=== PATIENT | female | born 1975 | race Caucasian/White ===

== ENCOUNTER 2019-01-17 12:03 | Emergency (ER) | payer MEDICAID ==
[2019-01-17 12:21] VITALS: BP 134/94
--- NOTE | 2019-01-17 13:18 | ER Document Report ---
HPI - HPI Patient complains to provider of: med refill Time Seen by Provider: 01/17/19 12:55 Onset: Other - 1 month Onset/Duration: Persistent Pain Level: Denies Context: Patient presents with a history of multiple complaints after recently moving here from [place] over a month ago. Patient states she has recently applied for Medicaid in this state but it has not gone through yet. Patient states that she went to an urgent care last week and they are setting her up to see a primary doctor but her appointment is not until 01/24/2019. Patient has still been taking her medicine although she will run out tomorrow. Patient is requesting a refill of her Viibryd, Xarelto and fenofibrate. Associated Symptoms: None Exacerbated by: Denies Relieved by: Denies Similar symptoms previously: Yes Recently seen / treated by doctor: Yes - ROS ROS below otherwise negative: Yes Systems Reviewed and Negative: Yes All other systems reviewed and negative - CONSTITUTIONAL Constitutional: DENIES: Fever - CARDIOVASCULAR Cardiovascular: DENIES: Chest pain - GASTROINTESTINAL Gastrointestinal: DENIES: Nausea, Patient vomiting - REPRODUCTIVE Reproductive: DENIES: : - MUSCULOSKELETAL Musculoskeletal: DENIES: Extremity pain - DERM Skin Color: Normal Skin Problems: None Past Medical History - General Information source: Patient - Social History Smoking Status: Current Every Day Smoker Smoking Education Provided: Yes Frequency of alcohol use: None Drug Abuse: None Occupation: none Lives with: Family Family History: Reviewed & Not Pertinent - Past Medical History Cardiac Medical History: Reports: Hx DVT, Hx Heart Attack, Hx Hypercholesterolemia, Hx Pulmonary Embolism Neurological Medical History: Reports: Hx Cerebrovascular Accident Musculoskeletal Medical History: Reports Hx Arthritis - Ankylosing spondylitis Past Surgical History: Reports: Hx Cardiac Surgery, Hx Vascular Surgery Vertical Provider Document - CONSTITUTIONAL Agree With Documented VS: Yes Exam Limitations: No Limitations General Appearance: WD/WN, No Apparent Distress - HEENT HEENT: Atraumatic, Normocephalic - NECK Neck: Normal Inspection - RESPIRATORY Respiratory: Breath Sounds Normal, No Respiratory Distress - CARDIOVASCULAR Cardiovascular: Regular Rate, Regular Rhythm, No Murmur. negative: Tachycardia - BACK Back: Normal Inspection - MUSCULOSKELETAL/EXTREMETIES Musculoskeletal/Extremeties: MAEW - NEURO Level of Consciousness: Awake, Alert, Appropriate Motor/Sensory: No Motor Deficit - DERM Integumentary: Warm, Dry Course - Vital Signs Vital signs: Temp Pulse Resp BP Pulse Ox 99.6 F 95 16 134/94 H 97 01/17/19 12:19 01/17/19 12:19 01/17/19 12:19 01/17/19 12:19 01/17/19 12:19 Discharge - Discharge Clinical Impression: Medication refill Condition: Stable Disposition: HOME, SELF-CARE Additional Instructions: Return immediately for any new or worsening symptoms Followup with your primary care provider, call tomorrow to make a followup appointment Prescriptions: Fenofibrate 160 mg PO DAILY #15 tablet Rivaroxaban [Xarelto] 20 mg PO DAILY #15 tablet Vilazodone HCl [Viibryd] 40 mg PO DAILY #15 tablet Forms: Smoking Cessation Education Referrals: FRANCIS RIDDLE MD [ACTIVE STAFF] - Follow up as needed LISETTE MACKEY MD [ACTIVE STAFF] - Follow up as needed TYRA NEGRON MD [ACTIVE STAFF] - Follow up as needed KATELYNN DESHPANDE MD [ACTIVE STAFF] - Follow up as needed MOHINDER DAVIS MD [ACTIVE STAFF] - Follow up as needed
== END 2019-01-17 14:01 | disposition home or self-care (01) ==
LOC: ER 12:03
DX: Z76.0 Encounter for issue of repeat prescription (principal); Z79.01 Long term (current) use of anticoagulants; Z79.899 Other long term (current) drug therapy; F17.200 Nicotine dependence, unspecified, uncomplicated
CPT/HCPCS: 99281

== ENCOUNTER → 2019-03-17 | Outpatient (CLI) | payer MEDICAID ==
--- NOTE | 2019-03-17 14:52 | WOMENS IMAGING REPORT ---
EXAM DESCRIPTION: 3D SCREENING MAMMO BILAT COMPLETED DATE/TIME: 03/17/2019 2:04 pm REASON FOR STUDY: Z12.31 ROUTINE 3D BILATERAL SCREENING Z12.31 ENCNTR SCREEN MAMMOGRAM FOR MALIGNAN T NEOPLASM OF EDDY COMPARISON: None. TECHNIQUE: Standard craniocaudal and mediolateral oblique views of each breast recorded using digita l acquisition and breast tomosynthesis. LIMITATIONS: None. FINDINGS: RIGHT BREAST MASSES: No suspicious masses. CALCIFICATIONS: No new or suspicious calcifications. ARCHITECTURAL DISTORTION: None. DEVELOPING DENSITY: None. ASYMMETRY: None noted. OTHER: No other significant findings. LEFT BREAST MASSES: Smooth 4 mm mass approximately 12 o'clock upper outer quadrant 5.5 cm deep to the nipple, bes t seen on the time the images. CALCIFICATIONS: No new or suspicious calcifications. ARCHITECTURAL DISTORTION: None. DEVELOPING DENSITY: None. ASYMMETRY: None noted. OTHER: No other significant findings. Read with the assistance of CAD. .[facility] - R2 Yeast Pumper Version 9.2 IMPRESSION: Small mass left breast. BREAST DENSITY: b. There are scattered areas of fibroglandular density. BIRAD: 0 Incomplete: Needs Additional Imaging Evaluation and/or prior Mammograms for Comparison. RECOMMENDATION: RECOMMENDED FOLLOW-UP: Ultrasound of the left breast. The patient will be contacted for additional imaging. COMMENT: The patient has been notified of the results by letter per SA requirements. Additional no tification policies are in place for contacting patient with suspicious or incomplete findings. Quality ID #225: The [employer] recommends an annual screening mammogram for women aged 40 years or over. This facility utilizes a reminder system to ensure that all patients receive reminder letters, and/or direct phone calls for appointments. This includes reminders for routine scr eening mammograms, diagnostic mammograms, or other Breast Imaging Interventions when appropriate. Th is patient will be placed in the appropriate reminder system. TECHNICAL DOCUMENTATION: FINDING NUMBER: (1) ASSESSMENT: (1) JOB ID: [id number] [employer]- All Rights Reserved Reading location - IP/workstation name: [email or web address]
== END ==
LOC: WI 13:51
PROVIDERS: ATTEND Physician Assistant
DX: Z12.31 Encounter for screening mammogram for malignant neoplasm of breast (principal)
CPT/HCPCS: 77063; 77067

== ENCOUNTER → 2019-03-31 | Outpatient (CLI) | payer MEDICAID ==
--- NOTE | 2019-03-31 14:42 | WOMENS IMAGING REPORT ---
EXAM DESCRIPTION: U/S BREAST UNILATERAL, COMPL COMPLETED DATE/TIME: 03/31/2019 2:27 pm REASON FOR STUDY: N63.21 UNSPECIFIED LUMP IN THE LEFT BREAST,UPPER OUTER QUADRANT N63.21 UNSPECIFIE D LUMP IN THE LEFT BREAST, UPPER OUTER QUAD COMPARISON: None. TECHNIQUE: Real-time and static grayscale imaging performed of the left breast targeted to the area of clinical/mammographic concern. Selected color Doppler images recorded. LIMITATIONS: None. FINDINGS: MASS: No mass identified. Normal glandular tissue. OTHER: No other significant finding. IMPRESSION: No suspicious findings detected by ultrasound. BIRAD: Negative. RECOMMENDATION: RECOMMENDED FOLLOW-UP: Annual mammographic follow-up. COMMENT: The [employer] (ACR) has developed recommendations for screening MRI of the breasts in certain patient populations, to be used in conjunction with mammography. Breast MRI s urveillance may be appropriate for women with more than 20% lifetime risk of developing breast cancer as determined by genetic testing, significant family history of the disease, or history of mantle r adiation for Hodgkins Disease. ACR Practice Guidelines 2008. TECHNICAL DOCUMENTATION: JOB ID: [id number] [employer]- All Rights Reserved Reading location - IP/workstation name: [email or web address]
== END ==
LOC: WI 13:43
PROVIDERS: ATTEND Physician Assistant
DX: N63.21 Unspecified lump in the left breast, upper outer quadrant (principal)
CPT/HCPCS: 76641

== ENCOUNTER → 2019-10-17 | Outpatient (CLI) | payer MEDICAID ==
--- NOTE | 2019-10-18 16:10 | RADIOLOGY REPORT (SQ) ---
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 TECHNIQUE: Sagittal and Axial imaging includes T1, T2, STIR and gradient echo sequences. T1 post ga dolinium sequences. CONTRAST TYPE AND DOSE: 20 mL Dotarem. RENAL FUNCTION: Not indicated. ACR Type II contrast agent associated with few, if any, unconfounded cases of NSF LIMITATIONS: None. FINDINGS: LOCALIZER: No worrisome findings. ALIGNMENT: Normal. VERTEBRAE: Intact. BONE MARROW: Normal other than small lipoma is in the body of T8 and T11. HARDWARE: None in the spine. CORD: Normal in size and signal intensity. SOFT TISSUES: No soft tissue masses. THORACIC DISCS T1-T12: No significant spinal stenosis. Annular disc bulging at T6-T7 and T7-T8. The re annular disc bulging at T11-T12. LOWER CERVICAL: Incompletely imaged. No significant spinal stenosis or exit foraminal stenosis. UPPER LUMBAR: Incompletely imaged. No significant spinal stenosis or exit foraminal stenosis. ENHANCEMENT: No abnormal enhancement. OTHER: No other significant finding. IMPRESSION: Mild multilevel spondylosis. No high-grade central canal narrowing. No abnormal cord s ignal. No abnormal enhancement. TECHNICAL DOCUMENTATION: JOB ID: [id number] [employer]- All Rights Reserved Reading location - IP/workstation name: [email or web address]
--- NOTE | 2019-10-19 12:42 | RADIOLOGY REPORT (SQ) ---
EXAM DESCRIPTION: MRI LUMBAR SPINE COMBO COMPLETED DATE/TIME: 10/17/2019 8:37 pm REASON FOR STUDY: OTHER INTERVERTEBRAL DISC DEGENERATION, THORACIC LUMBAR REGION M51.36 OTHER INT ERVERTEBRAL DISC DEGENERATION, LUMBAR REGION M51.34 OTHER INTERVERTEBRAL DISC DEGENERATION, THORACIC TIBURCIO COMPARISON: None. TECHNIQUE: Sagittal and Axial imaging includes T1, T1 post gadolinium, T2, STIR and gradient echo se quences. Coronal T2/HASTE imaging. CONTRAST TYPE AND DOSE: 20 mL Dotarem. RENAL FUNCTION: Not indicated. ACR Type II contrast agent associated with few, if any, unconfounded cases of NSF LIMITATIONS: None. FINDINGS: VISUALIZED UPPER ABDOMEN: Limited field of view. No gross pathology. SEGMENTATION: No transitional anatomy. The lowest well-developed disc space is labeled L5-S1. ALIGNMENT: Anatomic. VERTEBRAE: Intact. No fractures. BONE MARROW: Normal. No marrow replacement or reactive changes. DISC SIGNAL: Variable signal and height loss. POSTERIOR ELEMENTS: No pars defect. Mild facet arthropathy throughout without bulky overgrowth. HARDWARE: None in the spine. CORD AND CONUS: Normal in size and signal intensity. Conus at the appropriate level. SOFT TISSUES: No aortic aneurysm seen. No bulky retroperitoneal adenopathy or mass. No paraspinal mas s or fluid. L1-L2: No significant spinal stenosis or exit foraminal stenosis. L2-L3: No significant spinal stenosis or exit foraminal stenosis. L3-L4: Broad disc bulge with mild associated spurring. Mild posterior ligament thickening and slight facet overgrowth. There is lateral recess encroachment bilaterally. Bilateral foraminal narrowing is mild-moderate. L4-L5: Disc height loss with mild broad disc bulge. Mild facet overgrowth. Mild central stenosis ov erall. Up to moderate bilateral foraminal stenosis. L5-S1: Mild disc and facet disease. Left exit foraminal narrowing is at least moderate. LOWER THORACIC: T11-12 disc bulge without cord compression. SACRUM: Visualized upper sacrum intact. ENHANCEMENT: No abnormal enhancement. OTHER: No other significant findings. IMPRESSION: 1. Spondylosis without high-grade central stenosis. Foraminal narrowing as above. 2. No suspicious areas of enhancement. No fracture or bone lesion or significant spinal malalignment detected. TECHNICAL DOCUMENTATION: JOB ID: [id number] [employer]- All Rights Reserved Reading location - IP/workstation name: [email or web address]
== END ==
LOC: RAD 18:09
PROVIDERS: ATTEND Physician Assistant
DX: M51.36 Other intervertebral disc degeneration, lumbar region (principal); M47.896 Other spondylosis, lumbar region; M51.34 Other intervertebral disc degeneration, thoracic region; M47.894 Other spondylosis, thoracic region
CPT/HCPCS: 82565; 72157; 72158; A9576

== ENCOUNTER 2019-12-18 14:57 | Emergency (ER) | payer MEDICAID ==
--- NOTE | 2019-12-18 15:35 | ER Document Report ---
ED Psych Disorder / Suicide - General Chief Complaint: Suicidal Ideation Stated Complaint: SUICIDAL IDEATIONS Time Seen by Provider: 12/18/19 15:21 Primary Care Provider: YRN JARQUIN PA-C [Primary Care Provider] - Follow up as needed Mode of Arrival: Ambulatory Information source: Patient Notes: This 44-year-old woman presents to the emergency department with a history of depression. She states for the past 3 months her symptoms have worsened and for the last week she has had worsening symptoms suicidal ideation. States that she has had thoughts of running her car into a tree or stepping into traffic. She has had a history of hospitalizations in the past, apparently during her teenage years she was hospitalized at the [facility] in [place] on 2 separate occasions. She has a history of ankylosing spondylosis, insomnia, TRAVEL OUTSIDE OF THE [place] IN LAST 30 DAYS: No - Related Data Allergies/Adverse Reactions: promethazine [From Phenergan] Allergy (Verified 01/17/19 12:06) Past Medical History - Social History Smoking Status: Unknown if Ever Smoked Family History: Reviewed & Not Pertinent - Past Medical History Cardiac Medical History: Reports: Hx DVT, Hx Heart Attack, Hx Hypercholesterolemia, Hx Pulmonary Embolism Neurological Medical History: Reports: Hx Cerebrovascular Accident Renal/ Medical History: Denies: Hx Peritoneal Dialysis Musculoskeletal Medical History: Reports Hx Arthritis - Ankylosing spondylitis Past Surgical History: Reports: Hx Cardiac Surgery, Hx Vascular Surgery Review of Systems - Review of Systems Notes: He has a prior adult review Constitutional: Negative for fever. HENT: Negative for sore throat. Eyes: Negative for visual changes. Cardiovascular: Negative for chest pain. Respiratory: Negative for shortness of breath. Gastrointestinal: Negative for abdominal pain, vomiting or diarrhea. Genitourinary: Negative for dysuria. Musculoskeletal: Negative for back pain. Skin: Negative for rash. Neurological: Negative for headaches, weakness or numbnes Psychiatric:+ depression, +SI 10 point ROS negative except as marked above and in HPI. Physical Exam - Vital signs Vitals: Temp Pulse Resp BP Pulse Ox 98.6 F 111 H 18 127/101 H 96 12/18/19 15:18 12/18/19 15:18 12/18/19 15:18 12/18/19 15:18 12/18/19 15:18 - Notes Notes: PHYSICAL EXAMINATION: Physical Exam: General: Well-nourished well-developed in no acute distress HEENT: NC/AT, pupils equal round and reactive to light, MM moist,nares clear, Neck: supple, no adenopathy, no masses. Lungs: clear, no wheezing, no rales no rhonchi CVS: Regular rate and rhythm no murmur gallop or rub Abdomen: Soft active nontender, no masses, no hepatosplenomegaly Ext: No edema clubbing or cyanosis. Neuro: Alert and responsive, moving all 4 extremities on command, cranial nerves intact. Skin: Intact no open lesions, no rash PSYCH: Depressed affect, denies auditory or visual hallucinations, + SI, denies HI. Course - Re-evaluation Re-evalutation: 12/18/19 19:21 Patient was evaluated found to have no suicidal plan and has no other reasons to be involuntarily. She is being discharged to follow-up as an outpatient. - Vital Signs Vital signs: Temp Pulse Resp BP Pulse Ox 98.3 F 94 20 106/74 97 12/18/19 19:30 12/18/19 19:30 12/18/19 19:30 12/18/19 19:30 12/18/19 19:30 - Laboratory Result Diagrams: 12/18/19 15:47 12/18/19 15:47 Laboratory results interpreted by me: 12/18/19 12/18/19 15:47 15:47 WBC 12.8 H Total Protein 8.4 H Salicylates < 1.0 L Acetaminophen < 10 L I have reviewed laboratory data and used this information for the treatment decisions regarding the patient. - EKG Interpretation by [place] EKG shows normal: Sinus rhythm - Rate of 99, LVH, no acute ST or T wave abnormalities. Discharge - Discharge Clinical Impression: Depression Qualifiers: Depression Type: unspecified Qualified Code(s): F32.9 - Major depressive disorder, single episode, unspecified Condition: Good Disposition: HOME, SELF-CARE Instructions: Depression ([facility]) Additional Instructions: Please continue your usual medications, please follow-up with your outpatient provider Return to the emergency department if needed. Referrals: YRN JARQUIN PA-C [Primary Care Provider] - Follow up as needed
[2019-12-18 16:14] LABS: ABSOLUTE BASOPHILS # (AUTO) 0.1 10^3/uL (0.0-0.2); ABSOLUTE EOSINOPHILS # (AUTO) 0.2 10^3/uL (0.0-0.6); ABSOLUTE LYMPHOCYTES (AUTO) 3.6 10^3/uL (0.5-4.7); ABSOLUTE MONOCYTES (AUTO) 0.8 10^3/uL (0.1-1.4); ABSOLUTE NEUT (AUTO) 8.1 10^3/uL (1.7-8.2); BASOPHILS % (AUTO) 0.6 % (0-2); EOSINOPHILS % (AUTO) 1.7 % (0-6); HEMATOCRIT 43.9 % (36.0-47.0); HEMOGLOBIN 15.2 g/dL (12.0-15.5); LYMPHOCYTES % (AUTO) 28.2 % (13-45); MEAN CORPUSCULAR HEMOGLOBIN 31.5 pg (27.0-33.4); MEAN CORPUSCULAR HGB CONC 34.7 g/dL (32.0-36.0); MEAN CORPUSCULAR VOLUME 91 fl (80-97); MONOCYTES % (AUTO) 6.1 % (3-13); PLATELET COUNT 321 10^3/uL (150-450); RED BLOOD COUNT 4.82 10^6/uL (3.72-5.28); RED CELL DISTRIBUTION WIDTH 12.9 % (11.5-14.0); SEGMENTED NEUTROPHILS % (AUTO) 63.4 % (42-78); TOTAL CELLS COUNTED % (AUTO) 100 %; WHITE BLOOD COUNT 12.8 10^3/uL (4.0-10.5)
[2019-12-18 16:36] LABS: ALBUMIN 4.8 g/dL (3.5-5.0); ALKALINE PHOSPHATASE 104 U/L (38-126); ANION GAP 12 (5-19); ASPARTATE AMINO TRANSFERASE 27 U/L (14-36); BILIRUBIN,DIRECT 0.2 mg/dL (0.0-0.4); BILIRUBIN,TOTAL 0.2 mg/dL (0.2-1.3); BLOOD UREA NITROGEN 15 mg/dL (7-20); CALCIUM 10.2 mg/dL (8.4-10.2); CARBON DIOXIDE 22 mmol/L (22-30); CHLORIDE 107 mmol/L (98-107); GLUCOSE 105 mg/dL (75-110); POTASSIUM 4.7 mmol/L (3.6-5.0); TOTAL PROTEIN 8.4 g/dL (6.3-8.2)
[2019-12-18 16:38] LABS: ACETAMINOPHEN < 10 ug/mL (10-30); SALICYLATE < 1.0 mg/dL (2.0-20.0)
[2019-12-18 16:53] LABS: APPEARANCE,URINE SLIGHTLY-CLOUDY; BILIRUBIN,URINE NEGATIVE (NEGATIVE); COLOR,URINE YELLOW; GLUCOSE, URINE NEGATIVE (NEGATIVE); KETONES,URINE NEGATIVE (NEGATIVE); LEUKOCYTE ESTERASE,URINE NEGATIVE (NEGATIVE); NITRITE,URINE NEGATIVE (NEGATIVE); PROTEIN,URINE NEGATIVE (NEGATIVE); URINE SPECIFIC GRAVITY 1.021; UROBILINOGEN,URINE NEGATIVE mg/dL (<2.0)
[2019-12-18 17:11] LABS: URINE AMPHETAMINES SCREEN NEGATIVE; URINE BARBITURATES SCREEN NEGATIVE; URINE BENZODIAZEPINES SCREEN NEGATIVE; URINE COCAINE SCREEN NEGATIVE; URINE MARIJUANA (THC) SCREEN NEGATIVE; URINE METHADONE SCREEN NEGATIVE; URINE PHENCYCLIDINE SCREEN NEGATIVE
[2019-12-18 19:30] VITALS: BP 106/74
--- NOTE | 2019-12-18 19:35 | PSYCHOLOGICAL NOTE ---
Psych Note - Psych Note Date seen by psych provider: 12/18/19 Time seen by psych provider: 16:35 Psych Note: Patient is a 44-year-old female who presents to ED via EMS for SI. Patient states she has had increasing depression for 3 months as described as :staying in her room, thoughts of SI daily, and alienating everyone." Patient stated no intent or desire, however thought of running her car into a tree or stepping into traffic. Patient clarified these were just thoughts and spoke of not wanting to commit suicide due to her kids and grand kids. Patient reports an extensive history of inpatient hospitalizations. Patient reports "several suicide attempts" with last suicide attempt in the "early ." Patient stated she takes Viibryd 40MG, daily and Vistaril 50MG, at night. Patient states her primary care provider referred her to mental health however patient refused to attend session as it was a group not individual session. Patient requested a desire to go inpatient. Clinician spoke of the benefit of outpatient mental health services with those with a diagnosis of personality disorder. Patient was provided the opportunity to seek treatment at [facility], but patient declined. Patient states she did not realize coming to the ED would "be like this." Patient reiterated a desire not to commit suicide and return home. Patient lives with her daughter, son-in-law, and grandchild. Patient receives disability for a spine injury and personality disorder. Clinician spoke with patient's daughter, Payal ([phone]), who states patient has been more depressed lately and "kind of suicidal but did not want to ." Daughter states she has no concerns for patient's continued safety and wellbeing. Daughter agrees to be responsible for observation for increase in emotional distress, medication management and administration, and assisting with follow-up to mental health appointments, and removing potential safety hazards from the home. Patient was provided with psychoeducation regarding depression and personality disorders. Discussed healthier alternatives to the cycle of avoidance and isolation. Patient was able to realize a plan to go home and watch a movie with her granddaughter. Patient is alert and oriented to person, place, time and circumstance. Mood is normal with congruent affect. Patient endorses chronic suicidal ideation with no plan or desire. Patient denies homicidal ideation. Delusions are absent and behavior is congruent with an intact reality based presentation (i.e., organized and linear through processes). There is no observed behavior that suggests patient is responding to internal stimuli. Patient is able to engage in organized, rational thought processes. Patient is able to express needs and wants in a logical manner. Patient denies current auditory and visual hallucinations. Eye contact is appropriate. Conversational speech is within normal rate, tone, and prosody. Intellectual ability appears to be within average range. Attention and concentration are good. Insight, judgment and impulse control are currently poor. Impression/Plan: Patient is cleared from acute psychiatric services. Patient has a history of chronic suicidal ideation. Patient is not currently late with a [facility] provider for medication management and mental health services. Patient was offered opportunity to go to [facility], but patient declined. Patient was provided with psychoeducation regarding depression and personality disorders. Patient was provided with a outpatient mental health resource list with option for IFS highlighted. Patient was informed I[facility] can assist with mental health services and medication management. Dr. Villanueva was consulted on the care and management of this patient; attending physician is in agreement with recommendations and disposition.
--- NOTE | 2019-12-18 19:35 | EKG REPORT ---
SEVERITY:- ABNORMAL ECG - SINUS RHYTHM LEFT VENTRICULAR HYPERTROPHY : Confirmed by: Amarilys Laguna MD 18-Dec-2019 19:34:40
== END 2019-12-18 19:32 | disposition home or self-care (01) ==
LOC: ER 14:57
DX: F32.9 Major depressive disorder, single episode, unspecified (principal); R45.851 Suicidal ideations; I51.7 Cardiomegaly; Z88.8 Allergy status to other drugs, medicaments and biological substances
CPT/HCPCS: 36415; 80053; 80307; 81001; 85025; 93005; 93010; 99285

== ENCOUNTER → 2020-05-31 | Outpatient (CLI) | payer MEDICAID ==
--- NOTE | 2020-05-31 14:00 | WOMENS IMAGING REPORT ---
EXAM DESCRIPTION: BILAT SCREENING MAMMO W/CAD IMAGES COMPLETED DATE/TIME: 05/31/2020 12:10 pm REASON FOR STUDY: Z12.31 ENCNTR SCREEN MAMMOGRAM FOR MALIGNANT NEOPLASM OF BREAST Z12.31 ENCNTR SCR EEN MAMMOGRAM FOR MALIGNANT NEOPLASM OF EDDY COMPARISON: 2019 EXAM PARAMETERS: Standard craniocaudal and mediolateral oblique views of each breast recorded using digital acquisition. Read with the assistance of CAD. .[facility] - [employer] Operator Helper Version 9.2 LIMITATIONS: None. FINDINGS: No suspicious masses, suspicious calcifications or architectural distortion. No areas of c oncern. IMPRESSION: NEGATIVE MAMMOGRAM. BIRADS 1 BREAST DENSITY: b. There are scattered areas of fibroglandular density. BIRAD: ASSESSMENT: 1 NEGATIVE RECOMMENDATION: ROUTINE SCREENING COMMENT: The patient has been notified of the results by letter per MQSA requirements. Additional no tification policies are in place for contacting patient with suspicious or incomplete findings. Quality ID #[id number]: The [employer] recommends an annual screening mammogram for women aged 40 years or over. This facility utilizes a reminder system to ensure that all patients receive reminder letters, and/or direct phone calls for appointments. This includes reminders for routine scr eening mammograms, diagnostic mammograms, or other Breast Imaging Interventions when appropriate. Th is patient will be placed in the appropriate reminder system. TECHNICAL DOCUMENTATION: FINDING NUMBER: (1) ASSESSMENT: (1) JOB ID: [id number] [employer]- All Rights Reserved Reading location - IP/workstation name: [email or web address]
== END ==
LOC: WI 10:30
PROVIDERS: ATTEND Internal Medicine
DX: Z12.31 Encounter for screening mammogram for malignant neoplasm of breast (principal)
CPT/HCPCS: 77067